=== PATIENT | female | born 1940 | race Caucasian/White ===

== ENCOUNTER 2017-11-06 11:11 | Day surgery (SDC) | payer OTHER ==
[~2017-11-06] VITALS: Ht 154.9 cm; Wt 95.2 kg
[~2017-11-06 11:11] MED LIST: ASPIRIN EC325 MG PO; CALCIUM 600 MG1 EAC1 PO; CELEBREX200 MG PO; CIPRO500 MG PO; FLAGYL500 MG PO; HYDROCODON-ACE1 EAC7 PO; IMODIUM MS REL1 EACH PO; IRON325 M1 PO; LO-DOSE ASPIRIN81 M2 PO; MELOXICAM15 MG PO; METOPROLOL SUC100 MG PO; MOBIC15 MG PO; MULTIPLE VITAM1 EAC1 PO; OMEPRAZOLE20 MG PO; PEPCID40 MG PO; RETAINE HPMC 0.10 ML BOTH EYES; SENNA-TIME S T1 EACH PO; SIMVASTATIN20 MG PO; TRAMADOL HCL50 MG PO; TRIAMTERENE-HC1 EAC1; TRIAMTERENE-HC1 EACH PO; ULTRAM50 MG PO; VITAMIN B12-FO1 EACH PO; VITAMIN D31000 UNI2 PO
[2017-11-06 11:59] VITALS: BP 153/80
[2017-11-06 16:10] VITALS: BP 169/71
[2017-11-06 17:13] VITALS: BP 153/70
[2017-11-06 18:00] VITALS: BP 170/71
== END 2017-11-06 18:01 | disposition home or self-care (01) ==
LOC: SDC 11:11
PROC: 0QBR0ZZ Excision of Left Toe Phalanx, Open Approach (ICD-10-PCS; principal; 2017-11-06)
DX: M20.12 Hallux valgus (acquired), left foot (principal); M19.072 Primary osteoarthritis, left ankle and foot; I10 Essential (primary) hypertension; E78.5 Hyperlipidemia, unspecified; Z96.653 Presence of artificial knee joint, bilateral; Z82.61 Family history of arthritis; Z82.49 Family history of ischemic heart disease and other diseases of the circulatory system; Z80.9 Family history of malignant neoplasm, unspecified; Z68.41 Body mass index [BMI] 40.0-44.9, adult
CPT/HCPCS: J0690; J2250; J3010; S0020